=== PATIENT | female | born 1985 ===

== ENCOUNTER 2022-06-25 15:32 | Emergency (ER) | payer OTHER, SELFPAY ==
[2022-06-25 16:22] VITALS: BP 158/102; PULSE 78; RESP 18; TEMP 36.7; O2SAT 99; BMI 34.9
--- NOTE | 2022-06-25 16:23 | ED_ITS ---
HPI - Ear Problem General Chief complaint: Ear Problems Stated complaint: Earache Time Seen by Provider: 06/25/22 16:27 Source: patient and family Mode of arrival: ambulatory Limitations: no limitations History of Present Illness HPI Narrative: 37yoF presenting to the ER with complaints of left ear pain for the past 4 days worse today. Worse when she palpates yawns or choose. She denies any fevers, headaches, change in vision, nasal congestion/rhinorrhea, drainage from the ear, thoughts of foreign body, sore throat, cough or any other symptoms complaints or concerns at this time MD Complaint: ear pain Location: left ear Duration: constant Severity: moderate Relieving factors: nothing Exacerbating factors: chewing, palpation and other (Yawning) Discharge from ear: no Treatment prior to arrival: none Related Data Previous Rx's Medication Instructions Recorded cefuroxime axetil 500 mg tablet 500 mg PO BID 10 days #20 tabs 06/25/22 cyclobenzaprine 10 mg tablet 10 mg PO TID PRN muscle spasm #14 06/25/22 tabs naproxen 500 mg tablet 500 mg PO BID PRN pain #14 tabs 06/25/22 Allergies Allergy/AdvReac Type Severity Reaction Status Date / Time No Known Allergies Allergy Unverified 03/30/20 16:52 [No Known Allergies*] Review of Systems Review of Systems: Constitutional : No Weight loss, No Fever, No Chills, No Night Sweats, No Fatigue, No Malaise ENT/Mouth : No Hearing loss, + Ear Pain, No Nasal Congestion, No Sinus Pain, No Hoarseness, No sore throat, No Rhinorrhea, No Swallowing Difficulty Eyes: No Eye Pain, No Swelling, No Redness, No Foreign Body, No Discharge, No Vision Changes Cardiovascular : No Chest Pain, No SOB, No Dyspnea on Exertion, No Orthopnea, No Edema, No Palpitations Respiratory : No Cough, No Sputum, No Wheezing, No Smoke Exposure, No Dyspnea Gastrointestinal : No Nausea, No Vomiting, No Diarrhea, No Constipation, No abdominal Pain, No Hematochezia, No Melena Genitourinary : no irregular bleeding, No Dysuria, No Urinary Frequency, No Hematuria, No Urinary Incontinence, No Urgency, No Flank Pain, No Urinary Flow Changes, No Hesitancy Musculoskeletal : No joint pain, No Myalgias, No Joint Swelling Skin : No Skin Lesions, No rash Neuro : No Weakness, No Numbness, No Paresthesias, No Loss of Consciousness, No Dizziness, No Headache Psych : No Anxiety/Panic, No Depression, No SI/HI/AH/VH, No Social Issues, Heme/Lymph: No Bruising, No Bleeding,No Lymphadenopathy Endocrine : No Polyuria, No Polydipsia, No Temperature Intolerance Yes all other systems are reviewed and are negative [facility] Past Medical History Attestation statement: The following information was validated with the patient. Source: old records reviewed, obtained from family and nursing notes reviewed Physical Exam Vital Signs: Vital Signs: Last Vital Signs Temp 98.1 F 06/25/22 16:22 Pulse 78 06/25/22 16:22 Resp 18 06/25/22 16:22 BP 158/102 H 06/25/22 16:22 Pulse Ox 99 06/25/22 16:22 O2 Del Method 06/25/22 16:22 BMI result Body Mass Index 34.9 vital signs have been reviewed as normal and appeared to be correct. Blood pressure 158/102 Heart rate normal. Respiration rate normal. Temperature normal. Oxygen saturation normal. Appearance: Alert. Oriented X3. No acute distress. Head: Normal external exam. Normocephalic. Atraumatic. Eyes: PERRLA. EOMI. Conjunctiva and sclera normal. Eyelids normal. ENT: Right TM partially blocked with cerumen. Left TM mildly erythemous. EAC WNL. Not c/w c mastoiditis. Pharynx normal. Uvula midline. Moist mucous membranes. Patient with tenderness palpation over the TMJ joint bilaterally consistent with TMJ syndrome. Neck: Normal inspection. Neck supple. FROM. CVS: Normal heart rate and rhythm. Respiratory: No respiratory distress. Painless inspiration. Skin: Skin warm and dry. Normal skin color. Normal skin turgor. No rashes/lesions/lacerations noted. Extremities: No lower extremity edema. Extremities exhibit normal range of motion. Extremities nontender. Neuro: Oriented X 3. No motor deficit. No sensory deficit. Reflexes normal. Normal steady gait. No focal neuro deficits noted. Vascular: + radial pulses/+ 2 distal pedal pulses/+2 dorsalis pedis b/l. Normal cap refill. No cyanosis noted to upper extremity nails and lower extremity toes nails. Course Course Course Narrative: Patient most likely TMJ syndrome. Mild erythema to left tympanic membrane therefore will treat for otitis media. Will also treat for TMJ syndrome with symptomatic treatment. Along with instructions return if any new or worsening symptoms follow up with primary care provider. Patient understands agrees with this plan. Medical Decision Making Independent Historian Clinical information obtained from an independent historian. History obtained from or confirmed by: Friend Discharge Plan Discharge Clinical Impression: Acute left otitis media, Temporomandibular joint syndrome Patient Disposition: Home, Self-Care Instructions: Ear Infection (ED) Prescriptions: New naproxen 500 mg tablet 500 mg PO BID PRN (Reason: pain) Qty: 14 0RF cyclobenzaprine 10 mg tablet 10 mg PO TID PRN (Reason: muscle spasm) Qty: 14 0RF cefuroxime axetil 500 mg tablet 500 mg PO BID 10 Days Qty: 20 0RF Referrals: Physician,None [Primary Care Provider] - (your pcp) Interventions: ED Discharge Assessment Last Done: 06/25/22 16:28
== END 2022-06-25 16:35 | disposition home or self-care (01) ==
LOC: HO.ED 16:33
PROVIDERS: Emergency Provider Emergency Medicine
DX: H66.92 Otitis media, unspecified, left ear (principal); M26.602 Left temporomandibular joint disorder, unspecified
CPT/HCPCS: 99282; 99283

== ENCOUNTER 2023-01-15 18:57 | Emergency (ER) | payer OTHER, SELFPAY ==
[2023-01-15 19:01] VITALS: BP 167/87; PULSE 98; RESP 16; TEMP 36.4; O2SAT 97; BMI 41.4
--- NOTE | 2023-01-15 19:01 | ED.GENADULT ---
HPI - General Adult General Chief complaint: Extremity Injury, Upper Stated complaint: right elbow pain Time Seen by Provider: 01/15/23 20:27 Source: patient Mode of arrival: ambulatory Limitations: no limitations History of Present Illness HPI narrative: 38-year-old female who presents emergency department for evaluation of right elbow pain the patient states that the pain started 3 days prior and is gotten progressively worse. She does not recount any injury. She does not do anything repetitively. She points to her right lateral elbow when asked to localize the pain. The pain is worse with movement on pressing on the lateral elbow pain. She states that she is also noticed swelling of her hands and wrist but she has not been able to use her arm secondary to her elbow pain. She denies systemic illness such as fever, chills, nausea, vomiting, fatigue or weakness. She denies injection drug use. Related Data Previous Rx's Medication Instructions Recorded cefuroxime axetil 500 mg tablet 500 mg PO BID 10 days #20 tabs 06/25/22 cyclobenzaprine 10 mg tablet 10 mg PO TID PRN muscle spasm #14 06/25/22 tabs naproxen 500 mg tablet 500 mg PO BID PRN pain #14 tabs 06/25/22 oxycodone 5 mg tablet 5 mg PO Q6H PRN pain #10 tabs 01/15/23 prednisone 20 mg tablet 60 mg PO DAILY 7 days #21 tabs 01/15/23 Allergies Allergy/AdvReac Type Severity Reaction Status Date / Time No Known Allergies Allergy Unverified 03/30/20 16:52 [No Known Allergies*] Review of Systems Review of Systems: Yes all other systems are reviewed and are negative [facility] Past Medical History [facility] Narrative: Past medical history: None. Social history: She does smoke cigarettes. She denies alcohol use. She smokes marijuana. She denies injection drugs. Social History Social History Advance Directives: No Advance Directives Information Provided: No Physical Exam ED Vital Signs: Vital Signs - 24 hr 01/15/23 19:01 Temperature 97.5 F Pulse Rate 98 Respiratory Rate 16 Blood Pressure 167/87 H Pulse Oximetry 97 Oxygen Delivery Method Room Air BMI result Body Mass Index 41.4 Vital signs revealed an elevated blood pressure of 167/87 otherwise unremarkable. This could be elevated secondary to her pain General: Awake, alert, female patient, she is tearful secondary to her pain. She is holding her arm against her abdomen with the hand hanging down Extremity: Left upper extremities normal Right upper extremity: The patient has localized tenderness palpated palpation over the lateral epicondyle of her elbow, she has mild pain with passive range of motion of her elbow but significant pain with range of motion against resistance. There is no ecchymosis or increased warmth over the elbow pain. Patient's hand and wrist are swollen but there is no pain with movement of the joint this is most likely caused by dependent edema. Extremities neurovascular intact Course Course Course Narrative: RME- 38-year-old female presents for evaluation of 3 days of right elbow pain. Denies any specific injury Medical Decision Making Medical Decision Making MDM Narrative: 38-year-old female patient who presents emergency department for evaluation of right elbow pain x3 days with no reported injury, pain has gradually got worse. The pain is worse with movement of her elbow pain. Examination is consistent with right lateral epicondylar tendinitis. Patient was given prednisone 40 mg orally and oxycodone 5 mg orally here in the emergency department. She was advised to take Tylenol 1000 mg every 6 hours as needed for pain, she was also given prescription for oxycodone 5 mg every 6 hours as needed for pain not relieved by Tylenol (dispense 10 tablets) and prednisone 40 mg once a day joseph 7 days. She was given a sling to wear for the next 3 days to help reduce her pain Differential Diagnosis Differential diagnosis includes was not limited to inflammatory arthritis, osteoarthritis, occult fracture, tendinitis Independent Interpretation I performed an independent interpretation of an: Plain X-Ray Interpretation: My interpretation of the patient's right elbow x-rays are is as follows: No acute fracture seen Radiology Impression Discussion of test interpretation with radiology: I have reviewed the radiologist's reading. Radiologist Impression: XR elbow RT min 3V IMPRESSION: No fracture or malalignment. Soft tissue swelling. Small enthesophytes of the medial and lateral humeral epicondyles. Dictated By:Isaac Noland MD Discharge Plan Discharge Clinical Impression: Right lateral epicondylitis Patient Disposition: Home, Self-Care Instructions: Tennis Elbow (ED) Additional Instructions: Your exam is consistent with inflammation of the tendons of the lateral aspect of your elbow. This is also called tennis elbow. Apply ice for 15 minutes 4 to 6 times a day to the elbow to help reduce the pain and swelling, do this for the next 3-4 days. Keep your elbow elevated. Wear the sling as direct the next 3 days to help reduce the pain, after 3 days you should try to move use your elbow in a normal way. Take prednisone 20 mg pills, 3 pills once a day for 5 days. While you are taking prednisone, do not take any NSAIDs (Motrin, Advil, ibuprofen, Aleve, naproxen). Take Tylenol (acetaminophen) 500 mg pills, 2 pills every 6 hours as needed for pain. For pain not relieved by prednisone or Tylenol take oxycodone 5 mg pills, 1 pill every 4 hours as needed for pain. Do not drive or work while taking this medication since they can cause sleepiness. Oxycodone is a narcotic medication that can be addicting. If you are concerned about addiction you can ask the pharmacist for less pills or do not get this prescription filled. Follow-up with your doctor in 2 days. Please return to the emergency department if your symptoms get worse or if you develop any symptoms that are concerning to you. Prescriptions: New prednisone 20 mg tablet 60 mg PO DAILY 7 Days Qty: 21 0RF oxycodone 5 mg tablet 5 mg PO Q6H PRN (Reason: pain) Qty: 10 0RF Rx Instructions: Patient may request partial refill; Partial Fill upon patient request. No Action naproxen 500 mg tablet 500 mg PO BID PRN (Reason: pain) Qty: 14 0RF cyclobenzaprine 10 mg tablet 10 mg PO TID PRN (Reason: muscle spasm) Qty: 14 0RF cefuroxime axetil 500 mg tablet 500 mg PO BID 10 Days Qty: 20 0RF
== END 2023-01-15 21:35 | disposition home or self-care (01) ==
PROVIDERS: Emergency Provider Emergency Medicine Emergency Medical Services
DX: M77.11 Lateral epicondylitis, right elbow (principal); M25.521 Pain in right elbow
CPT/HCPCS: 73080; 99283